=== PATIENT | female | born 1990 | race Caucasian/White ===

== ENCOUNTER 2018-05-01 14:13 | Emergency (ER) | payer OTHER ==
[2018-05-01 14:34] VITALS: BP 115/81; PULSE 97; TEMP 98.4; BMI 27.1
[2018-05-01] MEDS ORDERED: LIDOCAINE HCL 2% JELLY (5 ML/TUBE) ONE (15:07)
--- NOTE | 2018-05-01 15:23 | PDOC ---
History of Present Illness - General History Source: Patient Exam Limitations: No Limitations - History of Present Illness Initial Comments: 05/01/18 15:26 The patient is a 27-year-old female, with no past medical history, who presents to the ED with a laceration to the medial aspect of the distal phalanx 4 hours prior to arrival. The patient sustained the wound while using a utility knife. She applied clotting medication to the finger. Tetanus is up-to-date, last was 3 years ago. The patient denies having any other injuries or symptoms. Allergies: NKA Social History: Denies any tobacco or drug use. Reports social drinking. Surgical History: None reported. <Juana Doe - Last Filed: 05/01/18 16:21> <Kobe Aparicio - Last Filed: 05/01/18 18:31> - General Chief Complaint: Laceration Stated Complaint: LEFT THUMB LACERATION Time Seen by Provider: 05/01/18 14:18 Past History <Juana Doe - Last Filed: 05/01/18 16:21> - Past Medical History COPD: No - Suicide/Smoking/Psychosocial Hx Smoking History: Never smoked Have you smoked in the past 12 months: No Information on smoking cessation initiated: No Hx Alcohol Use: No Drug/Substance Use Hx: No <Kobe Aparicio - Last Filed: 05/01/18 18:31> - Past Medical History Allergies/Adverse Reactions: Allergies Allergy/AdvReac Type Severity Reaction Status Date / Time No Known Allergies Allergy Verified 05/01/18 14:14 Home Medications: Ambulatory Orders NK [No Known Home Medication] 05/01/18 Review of Systems - Review of Systems Able to Perform ROS?: Yes Comments:: 05/01/18 15:26 GENERAL/CONSTITUTIONAL: No fever or chills. No weakness. HEAD, EYES, EARS, NOSE AND THROAT: No change in vision. No ear pain or discharge. No sore throat. CARDIOVASCULAR: No chest pain or shortness of breath. RESPIRATORY: No cough, wheezing, or hemoptysis. SKIN: No rash GASTROINTESTINAL: No nausea, vomiting, diarrhea or constipation. GENITOURINARY: No dysuria, frequency, or change in urination. MUSCULOSKELETAL: (+)Laceration to the LT tumb. No joint swelling or pain. No neck or back pain. NEUROLOGIC: No headache, vertigo, loss of consciousness, or change in strength/ sensation. ENDOCRINE: No increased thirst. No abnormal weight change. HEMATOLOGIC/LYMPHATIC: No anemia, easy bleeding, or history of blood clots. ALLERGIC/IMMUNOLOGIC: No hives or skin allergy. <Juana Doe - Last Filed: 05/01/18 16:21> *Physical Exam - Vital Signs Last Vital Signs Temp Pulse Resp BP Pulse Ox 98.4 F 97 H 20 115/81 100 05/01/18 14:14 05/01/18 14:14 05/01/18 14:14 05/01/18 14:14 05/01/18 14:14 - Physical Exam Comments: 05/01/18 15:27 GENERAL: Awake, alert, and fully oriented, in no acute distress HEAD: No signs of trauma NECK: Normal ROM, supple, no lymphadenopathy, JVD, or masses EXTREMITIES: (+)0.5in laceration to the medial aspect of the left distal phalanx. Perfect flexion and extension of the LT thumb. No clubbing or cyanosis. No cords. NEUROLOGICAL: Sensation distal to the injury is intact. SKIN: Warm, Dry, normal turgor, no rashes or lesions noted <Juana Doe - Last Filed: 05/01/18 16:21> - Vital Signs Last Vital Signs Temp Pulse Resp BP Pulse Ox 98.4 F 97 H 20 115/81 100 05/01/18 14:14 05/01/18 14:14 05/01/18 14:14 05/01/18 14:14 05/01/18 14:14 <Kobe Aparicio - Last Filed: 05/01/18 18:31> Procedures - Laceration/Wound Repair Left Distal Hand 1st digit Wound Length: to 2.5 cm Wound Explored: clean Wound's Depth, Shape: superficial Irrigated w/ Saline: Yes Betadine Prep: Yes Anesthesia: 2% Lidocaine Amount of Anesthetic (ccs): 5 Wound Debrided: minimal Wound Repaired With: Sutures Suture Size/Type: 5:0 Number of Sutures: 4 Sterile Dressing Applied: Yes Splint Applied: No <Juana Doe - Last Filed: 05/01/18 16:21> *DC/Admit/Observation/Transfer - Attestations Scribe Attestion: 05/01/18 15:29 Documentation prepared by Juana Doe, acting as medical care evaluation specialist for Kobe Aparicio MD. <Juana Doe - Last Filed: 05/01/18 16:21> - Discharge Dispostion Decision to Admit order: No <Kobe Aparicio - Last Filed: 05/01/18 18:31> Diagnosis at time of Disposition: Finger laceration Qualifiers: Encounter type: initial encounter Finger: thumb Damage to nail status: without damage Foreign body presence: without foreign body Laterality: left Qualified Code(s): S61.012A - Laceration without foreign body of left thumb without damage to nail, initial encounter - Discharge Dispostion Disposition: HOME Condition at time of disposition: Improved - Referrals Referrals: Nikolay Hartley MD [Staff Physician] - - Patient Instructions Printed Discharge Instructions: DI for Laceration Repair Additional Instructions: clean and dry , elevation, Wound check in 2-3 days here in ER or at PMD Sutures out in 12-14 days
[2018-05-01] MEDS ORDERED: LIDOCAINE HCL 2% JELLY (5 ML/TUBE) TP ONE (18:29)
== END 2018-05-01 16:29 | disposition home or self-care (01) ==
LOC: FER 14:13
PROC: 0HQGXZZ Repair Left Hand Skin, External Approach (ICD-10-PCS; principal; 2018-05-01)
DX: S61.012A Laceration without foreign body of left thumb without damage to nail, initial encounter (principal); W26.0XXA Contact with knife, initial encounter; Y93.89 Activity, other specified; Y92.89 Other specified places as the place of occurrence of the external cause
CPT/HCPCS: 99283-25

== ENCOUNTER 2022-04-15 11:21 | Emergency (ER) | payer OTHER ==
[2022-04-15 11:33] VITALS: BP 122/85; PULSE 99; RESP 18; TEMP 97.5; BMI 31.8
[2022-04-15] MEDS ORDERED: ACETAMINOPHEN 500 MG TABLET (FP) PO ONE (12:27)
[2022-04-15] MEDS ORDERED: LIDOCAINE 5% TOPICAL PATCH TP ONE (12:27)
[2022-04-15] MEDS ORDERED: LIDOCAINE 5% TOPICAL PATCH ONE (12:31)
[2022-04-15] MEDS ORDERED: ACETAMINOPHEN 325 MG TABLET (FP) ONE (12:31)
[2022-04-15] MEDS ORDERED: LIDOCAINE PATCH REMOVAL MC ONE (22:00)
== END 2022-04-15 14:29 | disposition home or self-care (01) ==
LOC: JERFT 11:21
DX: M54.50 Low back pain, unspecified (principal); M25.551 Pain in right hip; M79.671 Pain in right foot; M79.642 Pain in left hand
CPT/HCPCS: 72100-TC-FY; 73130-TC-LT-FY; 73502-TC-RT-FY; 73630-TC-RT-FY; 84703; 99284-25